=== PATIENT | female | born 1945 | race Two or more races ===

== ENCOUNTER 2018-07-26 10:14 | Day surgery (SDC) | payer OTHER | END 2018-07-26 17:35 | disposition home or self-care (01) | LOC: AMB-ENDOS 10:14 | DX: C20 Malignant neoplasm of rectum (principal) ==

== ENCOUNTER 2019-05-23 06:40 | Day surgery (SDC) | payer OTHER | END 2019-05-23 12:10 | disposition home or self-care (01) | LOC: AMB-ENDOS 06:40 | DX: K57.30 Diverticulosis of large intestine without perforation or abscess without bleeding (principal); K64.1 Second degree hemorrhoids ==